=== PATIENT | male | born 1975 | race Caucasian/White ===

== ENCOUNTER → 2019-07-07 08:36 | Outpatient (BNVA) | payer OTHER, SELFPAY | PROVIDERS: Family Provider Family Medicine; Referring Provider Family Medicine; Visit Provider Podiatrist Foot & Ankle Surgery | DX: M79.671 Pain in right foot (principal); M79.672 Pain in left foot; Z98.890 Other specified postprocedural states; M77.30 Calcaneal spur, unspecified foot; M76.60 Achilles tendinitis, unspecified leg | CPT/HCPCS: 73630 ==

== ENCOUNTER → 2022-07-10 10:47 | Outpatient (BNVA) | payer OTHER, SELFPAY | PROVIDERS: Family Provider Family Medicine; Visit Provider Family Medicine | DX: I10 Essential (primary) hypertension (principal); N52.9 Male erectile dysfunction, unspecified; Z11.59 Encounter for screening for other viral diseases; Z11.4 Encounter for screening for human immunodeficiency virus [HIV]; Z12.11 Encounter for screening for malignant neoplasm of colon | CPT/HCPCS: 80053; 80061; 83036; 84153; 84443; 85025; 86803; 87806 ==

== ENCOUNTER → 2022-07-18 14:55 | Outpatient (BNVA) | payer OTHER, SELFPAY | PROVIDERS: Family Provider Family Medicine; PCP Family Medicine; Visit Provider Nurse Practitioner Family | DX: R50.9 Fever, unspecified (principal); U07.1 COVID-19 | CPT/HCPCS: 87426 ==

== ENCOUNTER → 2023-06-04 17:30 | Outpatient (BNVA) | payer OTHER, SELFPAY | PROVIDERS: Family Provider Family Medicine; PCP Family Medicine; Visit Provider Family Medicine | DX: R06.02 Shortness of breath (principal); R05.3 Chronic cough; Z99.89 Dependence on other enabling machines and devices | CPT/HCPCS: 71046 ==